=== PATIENT | female | born 1975 | race African-American/Black ===

== ENCOUNTER 2020-02-17 17:11 | Inpatient (IN) | payer MEDICAID, OTHER ==
[~2020-02-17] VITALS: Ht 167.6 cm; Wt 98.9 kg
[2020-02-17] MEDS ORDERED: ASPIRIN 81MG TABLET PO ONE (17:45)
[2020-02-17] MEDS ORDERED: VISCOUS LIDOCAINE 2% 15 ML UDC PO ONE (17:45)
[2020-02-17] MEDS ORDERED: MAGNESIUM/ALUMINUM HYDROXIDE/SIMETHICONE 30ML UDC PO ONE (17:45)
[2020-02-17 18:21] LABS: CHLORIDE 102 mEq/L (98-107)
[2020-02-17 18:23] LABS: BASOPHILS % 0.6 % (0.0-2.0); EOSINOPHILS % 0.2 % (0.0-5.0); HEMATOCRIT. 44.6 % (36.0-48.0); HEMOGLOBIN. 15.3 g/dL (12.0-16.0); LYMPHOCYTES % 20.4 % (20.0-50.0); MEAN CORPUSCULAR HEMOGLOBIN 31.4 pg (28.0-32.0); MEAN CORPUSCULAR VOLUME 91.3 fL (81.0-99.0); MEAN PLATELET VOLUME 9.4 fl (7.4-10.4); MONOCYTES % 6.9 % (2.0-8.0); NEUTROPHILS % 71.9 % (40.0-76.0); PLATELET 321 x1000/uL (130-400); RED BLOOD CELL COUNT 4.88 mill/uL (4.2-5.4)
[2020-02-17] MEDS ORDERED: POTASSIUM CHLORIDE 20MEQ TABLET SR PO ONE (19:15)
[2020-02-17] MEDS ORDERED: KETOROLAC 30MG/ML VIAL IV ONE (19:15)
[2020-02-17 19:27] LABS: HCG SCREEN NEGATIVE
[2020-02-17] MEDS ORDERED: MAGNESIUM/ALUMINUM HYDROXIDE/SIMETHICONE 30ML UDC PO PRN (19:45)
[2020-02-17] MEDS ORDERED: KCL 20MEQ/100ML PREMIX 100 ML IV NR (19:45)
[2020-02-17] MEDS ORDERED: DOCUSATE SODIUM 100MG CAPSULE PO PRN (19:45)
[2020-02-17] MEDS ORDERED: GUAIFENESIN 200MG/10ML SUGAR FREE UDC PO PRN (19:45)
[2020-02-17] MEDS ORDERED: IPRATROPIUM/ALBUTEROL 0.5-3(2.5)MG/3ML NEB ORI PRN (19:45)
[2020-02-17] MEDS ORDERED: ONDANSETRON HCL 4MG/2ML INJ IV PRN (19:45)
[2020-02-17] MEDS ORDERED: CLONIDINE 0.1MG TABLET PO PRN (19:45)
[2020-02-17] MEDS ORDERED: KETOROLAC 15MG/ML VIAL IV PRN (19:45)
[2020-02-17] MEDS ORDERED: ACETAMINOPHEN 325MG TABLET PO PRN ×2 (19:45)
[2020-02-17] MEDS ORDERED: ENOXAPARIN 40MG/0.4ML SYR SUBCUT SCH (19:45)
[2020-02-17] MEDS ORDERED: NITROGLYCERIN 0.4MG TABLET SL SL PRN (19:45)
[2020-02-17] MEDS ORDERED: LORAZEPAM 0.5MG TABLET PO PRN (19:45)
[2020-02-17] MEDS: METOPROLOL TARTRATE 25MG TABLET PO SCH (20:17)
[2020-02-17 20:50] LABS: *AMPHETAMINES SCREEN URINE NEGATIVE (NEGATIVE); *BARBITURATES SCREEN URINE NEGATIVE (NEGATIVE)
[2020-02-17 20:51] LABS: *BENZODIAZEPINES SCREEN URINE NEGATIVE (NEGATIVE); *COCAINE SCREEN URINE NEGATIVE (NEGATIVE); CANNABINOID URINE SCREEN NEGATIVE (NEGATIVE); METHADONE URINE SCREEN NEGATIVE (NEGATIVE); OPIATES URINE SCREEN NEGATIVE (NEGATIVE); PHENCYCLIDINE URINE SCREEN NEGATIVE (NEGATIVE)
[2020-02-17] MEDS ORDERED: ZOLPIDEM TARTRATE 5MG TABLET PO PRN (21:00)
[2020-02-17] MEDS: FAMOTIDINE 20MG TABLET PO SCH (21:52)
[2020-02-17] MEDS: ASCORBIC ACID 500 MG TABLET PO SCH (21:52)
[2020-02-17] MEDS: ENOXAPARIN 30MG/0.3ML SYR SUBCUT SCH (21:52)
[2020-02-17 22:30] VITALS: BP 128/75
[2020-02-18 00:15] LABS: CREATINE KINASE 46 IU/L (26-192)
[2020-02-18 00:16] LABS: CREATINE KINASE MB FRACTION < 1.0 ng/mL (0.5-3.6)
[2020-02-18 06:55] LABS: BASOPHILS % 0.9 % (0.0-2.0); EOSINOPHILS % 1.3 % (0.0-5.0); HEMATOCRIT. 39.3 % (36.0-48.0); HEMOGLOBIN. 13.6 g/dL (12.0-16.0); LYMPHOCYTES % 40.7 % (20.0-50.0); MEAN CORPUSCULAR HEMOGLOBIN 31.4 pg (28.0-32.0); MEAN CORPUSCULAR VOLUME 90.5 fL (81.0-99.0); MEAN PLATELET VOLUME 9.4 fl (7.4-10.4); MONOCYTES % 8.4 % (2.0-8.0); NEUTROPHILS % 48.7 % (40.0-76.0); PLATELET 243 x1000/uL (130-400); RED BLOOD CELL COUNT 4.34 mill/uL (4.2-5.4); RED CELL DISTRIBUTION WIDTH 12.9 % (11.6-14.6)
[2020-02-18 06:59] LABS: CHLORIDE 105 mEq/L (98-107)
[2020-02-18 07:07] LABS: CREATINE KINASE MB FRACTION < 1.0 ng/mL (0.5-3.6)
[2020-02-18 07:12] LABS: LDL CHOLESTEROL 96 mg/dL (5-100); PHOSPHORUS 3.1 mg/dL (2.5-4.9)
[2020-02-18 07:13] LABS: CREATINE KINASE 44 IU/L (26-192)
[2020-02-18 07:14] LABS: HDL CHOLESTEROL 36 mg/dL (40-59)
[2020-02-18 07:43] VITALS: BP 128/73
[2020-02-18 08:00] VITALS: BP 131/88
[2020-02-18] MEDS ORDERED: POTASSIUM CHLORIDE 20MEQ/PACKET PO NR (08:30)
[2020-02-18] MEDS ORDERED: ASPIRIN 325MG EC TABLET PO SCH (09:00)
[2020-02-18] MEDS ORDERED: ZINC SULFATE 220 MG ( 50 ) CAPSULE PO SCH (09:00)
[2020-02-18] MEDS: ENOXAPARIN 30MG/0.3ML SYR SUBCUT SCH (09:00)
[2020-02-18] MEDS: FAMOTIDINE 20MG TABLET PO SCH (09:02)
[2020-02-18] MEDS: ASCORBIC ACID 500 MG TABLET PO SCH (09:02)
[2020-02-18] MEDS: METOPROLOL TARTRATE 25MG TABLET PO SCH (09:03)
[2020-02-18 10:04] VITALS: BP 131/88
== END 2020-02-18 10:30 | disposition home or self-care (01) | DRG 203 ==
LOC: ER 17:11 → 8WST 21:00 → ENRESERV 21:57
PROVIDERS: ADMIT Internal Medicine; ATTEND Internal Medicine
DX: M94.0 Chondrocostal junction syndrome [Tietze] (principal); I10 Essential (primary) hypertension; E87.6 Hypokalemia; R74.0 Nonspecific elevation of levels of transaminase and lactic acid dehydrogenase [LDH]; E66.9 Obesity, unspecified; K76.0 Fatty (change of) liver, not elsewhere classified; Z68.35 Body mass index [BMI] 35.0-35.9, adult; Z90.49 Acquired absence of other specified parts of digestive tract; Z98.891 History of uterine scar from previous surgery; E11.65 Type 2 diabetes mellitus with hyperglycemia
CPT/HCPCS: 36415; 71045; 80053; 80061; 80305; 80320; 82550; 82553; 83735; 83880; 84100; 84484; 84703; 85025; 93005; 93970; 99285; J1650; J1885; J3480; G0480

== ENCOUNTER 2020-02-19 13:57 | Emergency (ER) | payer MEDICAID ==
[~2020-02-19] VITALS: Ht 157.5 cm; Wt 99.0 kg
[2020-02-19] MEDS ORDERED: ACETAMINOPHEN 325MG TABLET PO STA (14:26)
[2020-02-19] MEDS ORDERED: KETOROLAC 30MG/ML VIAL IV STA (14:26)
[2020-02-19 15:14] LABS: BASOPHILS % 0.6 % (0.0-2.0); EOSINOPHILS % 0.4 % (0.0-5.0); HEMATOCRIT. 41.8 % (36.0-48.0); HEMOGLOBIN. 14.5 g/dL (12.0-16.0); LYMPHOCYTES % 20.6 % (20.0-50.0); MEAN CORPUSCULAR HEMOGLOBIN 31.5 pg (28.0-32.0); MEAN PLATELET VOLUME 9.1 fl (7.4-10.4); MONOCYTES % 6.5 % (2.0-8.0); NEUTROPHILS % 71.9 % (40.0-76.0); PLATELET 277 x1000/uL (130-400); RED CELL DISTRIBUTION WIDTH 13.2 % (11.6-14.6)
[2020-02-19 15:26] LABS: CHLORIDE 104 mEq/L (98-107)
[2020-02-19 15:45] LABS: HCG SCREEN NEGATIVE
[2020-02-19 17:54] VITALS: BP 120/70
== END 2020-02-19 17:55 | disposition home or self-care (01) ==
LOC: ER 13:57
DX: R07.9 Chest pain, unspecified (principal); E11.9 Type 2 diabetes mellitus without complications; I10 Essential (primary) hypertension; Z90.49 Acquired absence of other specified parts of digestive tract
CPT/HCPCS: 36415; 71045; 80053; 81025; 84484; 84703; 85025; 93005; 96374; 99285; J1885